=== PATIENT | male | born 1970 | race Hispanic/Latino ===

== ENCOUNTER 2020-01-05 12:09 | Outpatient (CLI) | payer OTHER, SELFPAY ==
--- NOTE | ~2020-01-05 | MR_ITS ---
EXAMINATION: MR lumbar spine wo con EXAM DATE: 01/05/2020 13:09 INDICATION: Low back pain. TECHNIQUE: Multi-sequential, multiplanar MR images of the lumbar spine were obtained without contrast . Sagittal T1, T2, T2 fat saturation images. Axial T2 weighted images. There is no prior study for comparison. FINDINGS: There is mild to moderate disc disease L1-2, mild at the other lumbar levels. The vertebral bodies are aligned in the AP dimension. There are scattered focal signal abnormalities consistent wi th hemangiomata, otherwise without focal suspicious marrow signal abnormalities. The conus medullaris terminates at the L1/2 level and has normal signal intensity and morphology. Paraspinal soft tissue is unremarkable. Level by level evaluation: T12-L1: Disc does not extend beyond the endplate margin. Facet arthropathy: Mild. Neural foraminal stenosis: No stenosis. Central canal stenosis: No stenosis. L1-L2: There is a mild diffuse disc bulge. Facet arthropathy: Mild. Neural foraminal stenosis: Minimal bilateral. Central canal stenosis: No stenosis. L2-L3: There is a mild diffuse disc bulge. Facet arthropathy: Mild. Neural foraminal stenosis: No stenosis. Central canal stenosis: No stenosis. L3-L4: There is a mild diffuse disc bulge. Facet arthropathy: Mild. Neural foraminal stenosis: Mild bilateral. Central canal stenosis: Mild. L4-L5: There is a mild to moderate diffuse disc bulge. Facet arthropathy: Mild to moderate. Neural foraminal stenosis: Moderate left, mild to moderate right. Central canal stenosis: Mild to moderate. L5-S1: There is a mild diffuse disc bulge. Facet arthropathy: Mild to moderate left, mild right. Neural foraminal stenosis: Mild bilateral. Central canal stenosis: Mild. IMPRESSION: 1. L4-5 moderate left neural foraminal stenosis. 2. Lesser spondylosis at other levels. Reviewed, dictated and finalized at location B. H [employer]
== END 2020-01-05 12:10 | disposition home or self-care (01) ==
PROVIDERS: PCP Nurse Practitioner Family; Visit Provider Nurse Practitioner Family
DX: G89.29 Other chronic pain (principal)
CPT/HCPCS: 72148

== ENCOUNTER 2021-03-22 21:01 | Emergency (ER) | payer OTHER, SELFPAY ==
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
[2021-03-22 21:05] VITALS: BP 138/100; PULSE 86; RESP 20; TEMP 36.6; O2SAT 97
--- NOTE | 2021-03-22 21:15 | PC.NURSE ---
[id number]-Patient removed from back board by Dr Vanessa, C-spine stabilization maintained
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
[2021-03-22 22:00] VITALS: BP 122/81; PULSE 90; RESP 18; O2SAT 99
[2021-03-22] MEDS: fentaNYL CITRATE INJ (*CRX) 100 MCG/2 ML VIAL 75 MCG IV PUSH (22:00)
--- NOTE | 2021-03-22 22:24 | PC.NURSE ---
C-Collar removed by Dr Vanessa
--- NOTE | 2021-03-22 22:24 | PC.NURSE ---
ERP Dr. Vanessa at bedside, the provider removed c-collar at this time.
[2021-03-22 23:00] VITALS: BP 108/74; PULSE 88; RESP 18; O2SAT 99
== END 2021-03-22 23:00 | disposition home or self-care (01) ==
PROVIDERS: Emergency Provider Emergency Medicine; PCP Nurse Practitioner Family
DX: S29.012A Strain of muscle and tendon of back wall of thorax, initial encounter (principal); I25.10 Atherosclerotic heart disease of native coronary artery without angina pectoris; L40.50 Arthropathic psoriasis, unspecified; V43.52XA Car driver injured in collision with other type car in traffic accident, initial encounter
CPT/HCPCS: 71046; 72125; 72128; 96374; 99284; J3010